=== PATIENT | female | born 1935 | race Caucasian/White ===

== ENCOUNTER 2017-05-03 12:34 | Emergency (ER) | payer MEDICARE, BC ==
[2017-05-03 13:04] VITALS: BP 139/63
--- NOTE | 2017-05-03 13:23 | EDM.PDOC ---
ED HPI GENERAL MEDICAL PROBLEM - General Chief Complaint: Bite:Animal, Insect Stated Complaint: BAD TICK BITE Time Seen by Provider: 05/03/17 13:19 Source of Information: Reports: Patient, RN Notes Reviewed History Limitations: Reports: No Limitations - History of Present Illness INITIAL COMMENTS - FREE TEXT/NARRATIVE: 82-year-old female presents emergency department day with a tick bite to the back of her left knee this happened about a week ago she believes it was a wood tick but her concern is the redness is now spread it is into her thigh in as well as her calf she denies any fevers nausea vomiting or other symptoms Posterior Knee Pain Score (Numeric/FACES): 5 - Related Data Allergies Allergy/AdvReac Type Severity Reaction Status Date / Time sulfadiazine Allergy Rash Verified 06/20/15 09:17 Home Meds: Home Meds Balsalazide [Colazal] 1,500 mg PO BID 06/20/15 [History] Cholecalciferol (Vitamin D3) [Vitamin D3] 5,000 unit PO DAILY 06/20/15 [History] Metoprolol Tartrate [Lopressor] 50 mg PO DAILY 06/20/15 [History] Multivitamin [Multi-Vitamin Daily] 1 tab PO DAILY 06/20/15 [History] Smoot-3/DHA/Epa/Fish Oil [Smoot-3 Fish Oil 1,200 MG Sfgl] 1,200 mg PO DAILY [History] Ubidecarenone [Coenzyme Q10] 60 mg PO DAILY 06/20/15 [History] Cephalexin [Keflex] 500 mg PO Q6HR #40 cap 05/03/17 [Rx] Past Medical History HEENT History: Reports: Hard of Hearing Other Gastrointestinal History: chrones disease 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: Musculoskeletal History: Reports: Other (See Below) Other Musculoskeletal History: ankle fx - Past Surgical History Female Surgical History: Reports: Hysterectomy Social & Family History - Tobacco Use Smoking Status *Q: Never Smoker - Caffeine Use Caffeine Use: Reports: Coffee - Recreational Drug Use Recreational Drug Use: No ED ROS GENERAL - Review of Systems Review Of Systems: See Below Constitutional: Denies: Fever, Chills Respiratory: Reports: No Symptoms Cardiovascular: Reports: No Symptoms GI/Abdominal: Reports: No Symptoms Skin: Reports: Rash, Erythema, Wound ED EXAM, ANIMAL BITE - Physical Exam Exam: See Below Text/Narrative:: Examination of the integument system she does have a healed wound no remaining tick contacts are noted behind the left knee there is erythematous around that approximately 10-15 cm in diameter it does not have central clearing is not consistent with erythema migrans, it is warm to the touch is tender to the touch Exam Limited By: No Limitations General Appearance: Alert, WD/WN, No Apparent Distress Respiratory/Chest: No Respiratory Distress Course - Vital Signs Last Recorded V/S: Last Vital Signs Temp 97.3 F 05/03/17 13:11 Pulse 73 05/03/17 13:11 Resp 16 05/03/17 13:11 BP 139/63 05/03/17 13:11 Pulse Ox 97 05/03/17 13:11 Departure - Departure Time of Disposition: 13:22 Disposition: Home, Self-Care 01 Condition: Good Clinical Impression: Cellulitis Qualifiers: Site of cellulitis: extremity Site of cellulitis of extremity: lower extremity Laterality: left Qualified Code(s): L03.116 - Cellulitis of left lower limb - Discharge Information Prescriptions: Cephalexin [Keflex] 500 mg PO Q6HR #40 cap Forms: ED Department Discharge Additional Instructions: Take full course of antibiotics, Please followup with your primary care provider in 5-7 days if not better, please call return to the emergency department with worsening of symptoms. - Assessment/Plan Plan: Assessment Acuity = acute Site and laterality = cellulitis left knee Etiology = secondary to tick bite Manifestations = none Location of injury = Home Lab values = none Plan Treat empirically with Keflex 500 mg every 6 hours for 10 days, follow-up with primary care in 5-7 days for reevaluation Patient was in agreement with the plan all questions were answered, they were instructed to return to the emergency department or call for worsening symptoms. This note was dictated using [employer] voice recognition software please call with any questions.
== END 2017-05-03 13:44 | disposition home or self-care (01) ==
LOC: JP.ED 12:34
DX: L03.116 Cellulitis of left lower limb (principal); Z88.8 Allergy status to other drugs, medicaments and biological substances; Z79.899 Other long term (current) drug therapy; Z90.710 Acquired absence of both cervix and uterus; W57.XXXA Bitten or stung by nonvenomous insect and other nonvenomous arthropods, initial encounter
CPT/HCPCS: 99283; 99284

== ENCOUNTER 2020-10-25 20:40 | Emergency (ER) | payer MEDICARE, BC ==
[2020-10-25] MEDS ORDERED: Potassium Chloride 10 MEQ Cap.ER PO ONE ×2 (20:45→23:15)
[2020-10-25] MEDS ORDERED: Potassium Chloride 20 MEQ in Premix Bag 1 BAG IV ONE (20:45)
--- NOTE | 2020-10-25 21:37 | EDM.PDOC ---
ED HPI GENERAL MEDICAL PROBLEM - General Chief Complaint: General Stated Complaint: [facility] Time Seen by Provider: 10/25/20 21:31 Source of Information: Reports: Patient, Old Records, RN History Limitations: Reports: No Limitations - History of Present Illness INITIAL COMMENTS - FREE TEXT/NARRATIVE: 85 yo female was seen in the clinic today for rectal pain and weight loss. It was noted that her WBC ct had risen to 14K. A UA was ordered, but they were not successful in collecting an adequate specimen so Cipro 500 mg bid x 7 d was started. She has been complaining of rectal pain and the clinic note from earlier today suggested this pain was improving. She has not been eating or interacting as before and has lost 12# in the last 2 weeks. A CMP came back after she had departed the clinic so she was tonight sent from her assisted living facility to the ER via EMS for a low K+ of 2.3. Onset: Gradual Duration: Week(s): (2+), Getting Worse Location: Reports: Generalized (weakness), Other (rectal pain) Quality: Reports: Other (not a lot of pain now) Severity: Severe (hypokalemia) Improves with: Reports: None Worsens with: Reports: Other (? time) Context: Reports: Other (See HPI) Associated Symptoms: Reports: Loss of Appetite, Malaise, Other (weight loss, rectal pain, hypokalemia). 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) (none) - Related Data Allergies Allergy/AdvReac Type Severity Reaction Status Date / Time aspirin Allergy Other Verified 10/25/20 21:26 sulfadiazine Allergy Rash Verified 10/25/20 21:26 Home Meds: Home Meds Balsalazide [Colazal] 1,500 mg PO BID 06/20/15 [History] Metoprolol Tartrate [Lopressor] 50 mg PO DAILY 06/20/15 [History] *Prevagen 1 cap PO DAILY 10/25/20 [History] Ciprofloxacin [Ciprofloxacin HCl] 500 mg PO BID 10/25/20 [History] Citalopram Hydrobromide [Celexa] 10 mg PO DAILY 10/25/20 [History] Donepezil HCl [Aricept] 10 mg PO BEDTIME 10/25/20 [History] Potassium Chloride 10 meq PO QID #28 tablet.er 10/25/20 [Rx] Past Medical History HEENT History: Reports: Hard of Hearing Cardiovascular History: Reports: None Other Gastrointestinal History: chrones disease 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: Musculoskeletal History: Reports: Other (See Below) Other Musculoskeletal History: ankle fx Neurological History: Reports: Other (See Below) Other Neuro History: dementia Psychiatric History: Reports: Depression - Infectious Disease History Infectious Disease History: Reports: Chicken Pox, Measles, Mumps - Past Surgical History Female Surgical History: Reports: Hysterectomy Social & Family History - Tobacco Use Tobacco Use Status *Q: Never Tobacco User - Caffeine Use Caffeine Use: Reports: Coffee - Recreational Drug Use Recreational Drug Use: No ED ROS GENERAL - Review of Systems Review Of Systems: See Below Constitutional: Reports: No Symptoms HEENT: Reports: No Symptoms Respiratory: Reports: No Symptoms Cardiovascular: Reports: No Symptoms Endocrine: Reports: Other (weight loss) GI/Abdominal: Reports: Anorexia, Decreased Appetite, Other (rectal pain). Denies: Constipation, Diarrhea, Melena : Reports: No Symptoms Musculoskeletal: Reports: No Symptoms Skin: Reports: No Symptoms Neurological: Reports: No Symptoms ED EXAM, GENERAL - Physical Exam Exam: See Below Exam Limited By: No Limitations General Appearance: Alert, WD/WN, No Apparent Distress Eye Exam: Bilateral Eye: Normal Inspection Ears: Normal External Exam, Normal Canal, Hearing Grossly Normal, Normal TMs Ear Exam: Bilateral Ear: Auricle Normal, Canal Normal Nose: Normal Inspection, No Blood Throat/Mouth: Normal Inspection, Normal Lips, Normal Oropharynx, Normal Voice, No Airway Compromise Head: Atraumatic, Normocephalic Neck: Normal Inspection Respiratory/Chest: No Respiratory Distress, Lungs Clear, Normal Breath Sounds, No Accessory Muscle Use Cardiovascular: Regular Rate, Rhythm, No Edema GI/Abdominal: Normal Bowel Sounds, Soft, Non-Tender, No Distention. No: Distended Back Exam: Normal Inspection. 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 Last Recorded V/S: Last Vital Signs Temp 35.9 C L 10/25/20 20:59 Pulse 64 10/26/20 00:28 Resp 16 10/26/20 00:28 BP 124/62 10/26/20 00:28 Pulse Ox 96 10/26/20 00:28 - Orders/Labs/Meds Orders: Active Orders 24 hr Category Date Time Status Cardiac Monitoring [RC] .As Directed Care 10/25/20 21:04 Active Iopamidol [Isovue-300 (61%)] Med 10/25/20 21:45 Active 88 ml IV . DIRECTED Lactated Ringers [Ringers, Lactated] 1,000 ml Med 10/25/20 21:45 Active IV ASDIRECTED Sodium Chloride 0.9% [Normal Saline] 70 ml Med 10/25/20 21:45 Active IV ASDIRECTED Medication Orders Lactated Ringer's (Ringers, Lactated) 1,000 mls @ 500 mls/hr IV ASDIRECTED WILLIE Last Admin: 10/25/20 22:31 Dose: 500 mls/hr Documented by: JL Sodium Chloride (Normal Saline) 70 mls @ 3.5 mls/sec IV ASDIRECTED WILLIE Last Admin: 10/25/20 22:12 Dose: 2.5 mls/sec Documented by: JOE Iopamidol (Isovue-300 (61%)) 88 ml IV . DIRECTED WILLIE Last Admin: 10/25/20 22:11 Dose: 88 ml Documented by: JOE Labs: Laboratory Tests 10/25/20 Range/Units 21:00 Magnesium 2.4 (1.8-2.4) mg/dL Meds: Medications Generic Name Dose Route Start Last Admin Trade Name Freq PRN Reason Stop Dose Admin Lactated Ringer's 1,000 mls @ 500 mls/hr 10/25/20 21:45 10/25/20 22:31 Ringers, Lactated IV 500 mls/hr ASDIRECTED WILLIE Administration Sodium Chloride 70 mls @ 3.5 mls/sec 10/25/20 21:45 10/25/20 22:12 Normal Saline IV 2.5 mls/sec ASDIRECTED WILLIE Administration Iopamidol 88 ml 10/25/20 21:45 10/25/20 22:11 Isovue-300 (61%) IV 88 ml . DIRECTED WILLIE Administration Discontinued Medications Generic Name Dose Route Start Last Admin Trade Name Tika PRN Reason Stop Dose Admin Potassium Chloride 20 meq/ 100 mls @ 50 mls/hr 10/25/20 20:45 10/25/20 21:34 Premix IV 10/25/20 22:44 50 mls/hr ONETIME ONE Administration Potassium Chloride 40 meq 10/25/20 20:45 10/25/20 21:33 Potassium Chloride PO 10/25/20 20:46 40 meq ONETIME ONE Administration Potassium Chloride 20 meq 10/25/20 23:15 Potassium Chloride PO 10/25/20 23:16 ONETIME ONE Sodium Chloride 10 ml 10/25/20 21:43 10/25/20 22:12 Saline Flush FLUSH 10/25/20 21:44 10 ml ONETIME ONE Administration - Radiology Interpretation Free Text/Narrative:: CT abd/pelvis-IMPRESSION: 1. Nonspecific mild diffuse colon wall thickening suggesting mild colitis. 2. Nonacute additional findings as detailed above. EL MALCOLM MD [employer]ing [employer], [employer]. Departure - Departure Time of Disposition: 00:55 Disposition: Home, Self-Care 01 Condition: Fair Clinical Impression: Hypokalemia - Discharge Information *PRESCRIPTION DRUG MONITORING PROGRAM REVIEWED*: Not Applicable *COPY OF PRESCRIPTION DRUG MONITORING REPORT IN PATIENT SWETHA: Not Applicable Prescriptions: Potassium Chloride 10 meq PO QID #28 tablet.er Referrals: PCP,None [Primary Care Provider] - Forms: ED Department Discharge Additional Instructions: Take potassium as directed. Follow up with your provider as soon as possible for recheck. Return as needed. Your potassium Rx was sent to [facility], you will need to start this medication in the morning. Sepsis Event Note (ED) - Evaluation Sepsis Screening Result: No Definite Risk - Focused Exam Vital Signs: Vital Signs Temp Pulse Resp BP Pulse Ox 10/26/20 00:28 64 16 124/62 96 10/25/20 23:44 50 L 16 123/57 L 96 10/25/20 22:44 49 L 16 119/59 L 10/25/20 21:44 54 L 16 134/62 96 10/25/20 20:59 35.9 C L 63 16 139/71 95 10/25/20 20:53 35.9 C L 63 16 139/71 95 - My Orders Last 24 Hours: My Active Orders 10/25/20 21:04 Cardiac Monitoring [RC] .As Directed 10/25/20 21:45 Iopamidol [Isovue-300 (61%)] 88 ml IV . DIRECTED Lactated Ringers [Ringers, Lactated] 1,000 ml IV ASDIRECTED Sodium Chloride 0.9% [Normal Saline] 70 ml IV ASDIRECTED - Assessment/Plan Last 24 Hours: My Active Orders 10/25/20 21:04 Cardiac Monitoring [RC] .As Directed 10/25/20 21:45 Iopamidol [Isovue-300 (61%)] 88 ml IV . DIRECTED Lactated Ringers [Ringers, Lactated] 1,000 ml IV ASDIRECTED Sodium Chloride 0.9% [Normal Saline] 70 ml IV ASDIRECTED
[2020-10-25] MEDS ORDERED: Sodium Chloride 0.9% 10 ML Syringe FLUSH ONE (21:43)
[2020-10-25] MEDS ORDERED: Iopamidol 612 MG/ML 100 ML Bottle IV SCH (21:45)
[2020-10-25] MEDS ORDERED: Lactated Ringers 1,000 ML IV SCH (21:45)
--- NOTE | 2020-10-25 22:54 | CRLCT ---
INDICATION: weight loss, rectal pain CT ABDOMEN AND PELVIS WITH CONTRAST TECHNIQUE: Multidetector CT imaging was performed through the abdomen and pelvis following intravenous contrast administration using 88 mL Isovue-300. Coronal and sagittal reconstructions were generated. COMPARISON: None. FINDINGS: Lower chest: Minimal bibasilar lung atelectasis or fibrosis. Liver: Within normal limits. Gallbladder and bile ducts: No gallbladder wall thickening or calcified gallstones. No biliary dilation identified. Pancreas: Unremarkable. Spleen: Normal. Adrenals: No nodules or masses. Kidneys, ureters, and urinary bladder: No renal masses or hydronephrosis. No bladder mass or definite wall thickening. Gastrointestinal tract: Normal caliber small bowel without wall thickening or obstruction. The appendix is normal. There is diffuse mild wall thickening of the colon with a few scattered areas of mild pericolonic fat stranding, suggesting colitis. Vascular structures: Moderate aortoiliac atherosclerotic changes. Peritoneum: No free air, abscess, or significant free fluid. Lymph nodes: No pathologically enlarged nodes identified. Reproductive organs: Status post hysterectomy. No pelvic masses. Bones: Mild spinal degenerative changes. IMPRESSION: 1. Nonspecific mild diffuse colon wall thickening suggesting mild colitis. 2. Nonacute additional findings as detailed above. EL MALCOLM MD [employer] Dictated by Jarett Malcolm MD @ 10/25/2020 10:50:51 PM Dictated by: Jarett Malcolm MD @ 10/25/2020 22:52:32 (Electronically Signed)
[2020-10-26 00:28] VITALS: BP 124/62; PULSE 64
== END 2020-10-26 02:36 | disposition home or self-care (01) ==
LOC: JP.ED 20:40
DX: E87.6 Hypokalemia (principal); F32.9 Major depressive disorder, single episode, unspecified; F03.90 Unspecified dementia, unspecified severity, without behavioral disturbance, psychotic disturbance, mood disturbance, and anxiety; Z88.6 Allergy status to analgesic agent; Z88.2 Allergy status to sulfonamides; Z79.899 Other long term (current) drug therapy
CPT/HCPCS: 36415; 74177; 83735; 96365; 96366; 99285; A9270; J3480; J7120; Q9967

== ENCOUNTER 2023-09-09 15:41 | Emergency (ER) | payer MEDICARE, BC ==
[2023-09-09 16:32] VITALS: PULSE 53
[2023-09-09] MEDS ORDERED: fentaNYL 100 MCG/2 ML SDV IM ONE (16:53)
[2023-09-09 17:44] VITALS: BP 153/77
== END 2023-09-09 19:05 ==
LOC: JP.ED 15:41
DX: S42.291A Other displaced fracture of upper end of right humerus, initial encounter for closed fracture (principal); I10 Essential (primary) hypertension; Z88.2 Allergy status to sulfonamides; Z88.6 Allergy status to analgesic agent; Z79.899 Other long term (current) drug therapy; W18.30XA Fall on same level, unspecified, initial encounter; Y92.129 Unspecified place in nursing home as the place of occurrence of the external cause
CPT/HCPCS: 73060-26-RT; 73060-RT; 96372; 99283; 99284; J3010